=== PATIENT | female | born 1935 | race Caucasian/White ===

== ENCOUNTER → 2016-05-25 | Outpatient (CLI) | payer OTHER | END | disposition home or self-care (01) | LOC: CFH 12:02 | PROVIDERS: ATTEND Obstetrics & Gynecology | DX: R92.2 Inconclusive mammogram (principal) | CPT/HCPCS: 76641; G0206 ==

== ENCOUNTER 2020-11-13 11:55 | Inpatient (IN) | payer MEDICARE ==
[~2020-11-13] VITALS: Ht 167.6 cm; Wt 68.8 kg
[~2020-11-13 11:55] MED LIST: AMLO-150 PO; AMLO-211 PO; ATEN25TA PO; CEFD300C37 PO; ESTR2TAB PO; LOSA1TAB25 PO; OMEP-110 PO; SIMV20TA19 PO; TAMS-11 PO; TRAM100T33 PO
--- NOTE | 2020-11-13 13:23 | NUR ---
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
[2020-11-13] MEDS ORDERED: ONDANSETRON 2MG/ML, 2ML ONE (14:23)
[2020-11-13] MEDS ORDERED: HYDROmorphone 2 MG/ML, 1ML ONE ×2 (14:23→17:35)
[2020-11-13] MEDS ORDERED: HYDROmorphone 1 MG/ML, 1ML INJ IV ONE (14:30)
[2020-11-13] MEDS ORDERED: SODIUM CHLORIDE FLUSH 10ML SYR IVF ONE (14:30)
[2020-11-13] MEDS ORDERED: SODIUM CHLORIDE 0.9% 1,000ML IVBOLUS ONE (14:30)
[2020-11-13] MEDS ORDERED: ONDANSETRON 2MG/ML, 2ML IVPush ONE (14:30)
[2020-11-13 14:34] LABS: BASOPHILS % (AUTO) 1 % (0-1); EOSINOPHILS % (AUTO) 0 % (1-7); LYMPHOCYTES % (AUTO) 10 % (22-44); MEAN CORPUSCULAR HEMOGLOBIN 30.7 pg (27.0-34.8); MEAN PLATELET VOLUME 7.3 fL (7.4-10.4); MONOCYTES % (AUTO) 4 % (2-9); NEUTROPHILS % (AUTO) 86 % (42-75); PLATELET COUNT 224 x10^3/uL (130-400); RED BLOOD COUNT 4.86 x10^6/uL (3.82-5.3); RED CELL DISTRIBUTION WIDTH 14.3 % (9.6-15.2)
[2020-11-13 14:48] LABS: ALANINE AMINOTRANSFERASE 14 U/L (12-78); ANION GAP 8 mmol/L (5-15); CALCIUM 9.2 mg/dL (8.5-10.1); CHLORIDE 102 mmol/L (98-107)
[2020-11-13 14:51] LABS: ALKALINE PHOSPHATASE 57 U/L (45-117); BILIRUBIN,TOTAL 0.6 mg/dL (0.2-1.0); CREATININE 0.93 mg/dL (0.55-1.02); TOTAL PROTEIN 6.8 g/dL (6.4-8.2)
[2020-11-13] MEDS ORDERED: OMNIPAQUE 350 MG/ML, 100ML BOTTLE ONE (15:21)
[2020-11-13] MEDS ORDERED: LIDOCAINE 2% VISCOUS 15 ML UDC ONE (16:46)
--- NOTE | 2020-11-13 16:51 | NUR ---
TP: [employer]. ATTEMPT TO CALL [facility]. NO ANSWER LEFT MSG
--- NOTE | 2020-11-13 17:14 | NUR ---
NGT placed down Left nares, auscultated, aspirated pt able to speak. Draining yellow/green stomach contents to low int suction. approx 300ml. Pt tolerated well, attempted right nares first pt has deviated septum unable to pass caused slight bleeding to nose. Waiting for admission.
--- NOTE | 2020-11-13 17:41 | NUR ---
Pt c/o increase pain to abd and throat, wanting more pain medications. Verbal ok Dr nelson for 1mg dilauidid IV. Pt tolerated well. Waiting for bed.
[2020-11-13] MEDS: HYDROmorphone 2 MG/ML, 1ML IVPush PRN ×2 (17:45→21:23)
--- NOTE | 2020-11-13 17:45 | NUR ---
7/10 pain, VSS. Reports relief with dilaudid.
[2020-11-13] MEDS ORDERED: OXYcodone IR 5MG TABLET PO PRN (18:00)
[2020-11-13] MEDS ORDERED: ACETAMINOPHEN 325 MG TABLET PO PRN (18:00)
[2020-11-13] MEDS ORDERED: ONDANSETRON ODT 4 MG PO PRN (18:00)
[2020-11-13] MEDS ORDERED: PROMETHAZINE 25 MG/ML, 1ML IM PRN (18:00)
[2020-11-13] MEDS ORDERED: hydrALAzine 20 MG/ML, 1ML IVPush PRN (18:00)
--- NOTE | 2020-11-13 18:10 | NUR ---
Reports adequate pain control, placed on 2 L NC o2 for decrease o2 s/p dilaudid 2nd admin. Pt VSS.
[2020-11-13 19:07] VITALS: BP 146/68
[2020-11-13 20:06] VITALS: BP 150/76
[2020-11-13] MEDS: D5%-0.9% NACL+KCL 20MEQ 1,000 ML IV SCH (23:00)
[2020-11-14 01:03] VITALS: BP 164/80
[2020-11-14] MEDS: ONDANSETRON 2MG/ML, 2ML IVPush PRN ×3 (03:24→16:35)
[2020-11-14 05:42] LABS: BASOPHILS % (AUTO) 0 % (0-1); EOSINOPHILS % (AUTO) 1 % (1-7); LYMPHOCYTES % (AUTO) 9 % (22-44); MEAN CORPUSCULAR HEMOGLOBIN 30.2 pg (27.0-34.8); MEAN CORPUSCULAR HGB CONC 33.2 g/dL (32.4-35.8); MEAN PLATELET VOLUME 7.7 fL (7.4-10.4); MONOCYTES % (AUTO) 7 % (2-9); NEUTROPHILS % (AUTO) 84 % (42-75); PLATELET COUNT 200 x10^3/uL (130-400); RED BLOOD COUNT 4.64 x10^6/uL (3.82-5.3); RED CELL DISTRIBUTION WIDTH 14.2 % (9.6-15.2)
[2020-11-14 05:47] LABS: CHLORIDE 107 mmol/L (98-107)
[2020-11-14 06:03] LABS: ALANINE AMINOTRANSFERASE 11 U/L (12-78); ALBUMIN 2.8 g/dL (3.4-5.0); ALKALINE PHOSPHATASE 50 U/L (45-117); ANION GAP 8 mmol/L (5-15); BILIRUBIN,TOTAL 0.5 mg/dL (0.2-1.0); CALCIUM 8.6 mg/dL (8.5-10.1); CHOL/HDL RATIO 1.9; CHOLESTEROL, TOTAL 130 mg/dL (140-239); CREATININE 0.88 mg/dL (0.55-1.02); HDL CHOL % 52 % (28-40); HDL CHOLESTEROL (DIRECT) 68 mg/dL (40-60); LDL CHOLESTEROL,CALCULATED 47 mg/dL (54-169); LDL/HDL RATIO 0.7 (0.5-3.0); TOTAL PROTEIN 6.2 g/dL (6.4-8.2); TRIGLYCERIDES 74 mg/dL (50-200); VLDL CHOLESTEROL 15 mg/dL (0-25)
[2020-11-14] MEDS: D5%-0.9% NACL+KCL 20MEQ 1,000 ML IV SCH (06:30)
[2020-11-14 07:02] VITALS: BP 157/76
[2020-11-14] MEDS ORDERED: POTASSIUM PHOSPHATE 44 MEQ in SODIUM CHLORIDE 0.9% 500 ML IV ONE (08:30)
[2020-11-14] MEDS ORDERED: MAGNESIUM SULFATE PMX 4GM/100M 100 ML IVPB ONE (08:30)
[2020-11-14] MEDS: HYDROmorphone 2 MG/ML, 1ML IVPush PRN (16:36)
[2020-11-14 20:22] VITALS: BP 145/87
[2020-11-15 01:20] VITALS: BP 137/84
[2020-11-15 07:24] VITALS: BP 128/78
[2020-11-15] MEDS: HYDROmorphone 2 MG/ML, 1ML IVPush PRN ×2 (08:01→15:54)
[2020-11-15] MEDS: ONDANSETRON 2MG/ML, 2ML IVPush PRN ×2 (08:01→15:54)
[2020-11-15 09:41] LABS: ANION GAP 8 mmol/L (5-15); CALCIUM 9.2 mg/dL (8.5-10.1); CHLORIDE 103 mmol/L (98-107); CREATININE 1.03 mg/dL (0.55-1.02)
[2020-11-15 12:24] VITALS: BP 129/77
[2020-11-15 19:43] VITALS: BP 134/84
[2020-11-16 03:20] VITALS: BP 123/76
[2020-11-16] MEDS ORDERED: LACTATED RINGERS 1,000 ML IV SCH (06:00)
[2020-11-16 06:10] LABS: BASOPHILS % (AUTO) 0 % (0-1); EOSINOPHILS % (AUTO) 1 % (1-7); LYMPHOCYTES % (AUTO) 17 % (22-44); MEAN CORPUSCULAR HEMOGLOBIN 31.3 pg (27.0-34.8); MEAN CORPUSCULAR HGB CONC 34.1 g/dL (32.4-35.8); MEAN PLATELET VOLUME 8.2 fL (7.4-10.4); MONOCYTES % (AUTO) 13 % (2-9); NEUTROPHILS % (AUTO) 70 % (42-75); PLATELET COUNT 208 x10^3/uL (130-400); RED BLOOD COUNT 4.64 x10^6/uL (3.82-5.3); RED CELL DISTRIBUTION WIDTH 14.6 % (9.6-15.2)
[2020-11-16 06:18] LABS: CHLORIDE 106 mmol/L (98-107)
[2020-11-16 06:25] LABS: ANION GAP 8 mmol/L (5-15); CREATININE 1.13 mg/dL (0.55-1.02)
[2020-11-16] MEDS ORDERED: POTASSIUM PHOSPHATE 44 MEQ in SODIUM CHLORIDE 0.9% 500 ML IV ONE (08:30)
[2020-11-16 09:16] VITALS: BP 132/65
[2020-11-16] MEDS: D5%-0.9% NACL+KCL 20MEQ 1,000 ML IV SCH ×2 (10:19→23:12)
[2020-11-16 13:46] VITALS: BP 135/75
[2020-11-16] MEDS ORDERED: HEPARIN 5,000 UNITS/ML, 1ML ONE (15:01)
[2020-11-16] MEDS: HEPARIN 5,000 UNITS/ML, 1ML SQ SCH ×2 (15:14→23:13)
[2020-11-16 19:29] VITALS: BP 119/73
[2020-11-17 01:22] VITALS: BP 123/76
[2020-11-17] MEDS: HEPARIN 5,000 UNITS/ML, 1ML SQ SCH ×3 (06:23→21:21)
[2020-11-17 08:04] VITALS: BP 151/79
[2020-11-17 09:17] LABS: BASOPHILS % (AUTO) 0 % (0-1); EOSINOPHILS % (AUTO) 1 % (1-7); LYMPHOCYTES % (AUTO) 22 % (22-44); MEAN CORPUSCULAR HEMOGLOBIN 30.8 pg (27.0-34.8); MEAN CORPUSCULAR HGB CONC 33.8 g/dL (32.4-35.8); MEAN PLATELET VOLUME 7.9 fL (7.4-10.4); MONOCYTES % (AUTO) 13 % (2-9); NEUTROPHILS % (AUTO) 64 % (42-75); PLATELET COUNT 206 x10^3/uL (130-400); RED CELL DISTRIBUTION WIDTH 14.5 % (9.6-15.2)
[2020-11-17 09:24] LABS: CALCIUM 8.7 mg/dL (8.5-10.1)
[2020-11-17 09:25] LABS: CREATININE 0.88 mg/dL (0.55-1.02)
[2020-11-17 09:40] LABS: ANION GAP 3 mmol/L (5-15); CHLORIDE 113 mmol/L (98-107)
[2020-11-17 12:31] VITALS: BP 142/84
[2020-11-17] MEDS: D5%-0.9% NACL+KCL 20MEQ 1,000 ML IV SCH (13:14)
[2020-11-17 18:41] VITALS: BP 144/87
[2020-11-17] MEDS: ONDANSETRON 2MG/ML, 2ML IVPush PRN (19:46)
[2020-11-17] MEDS: D5%-0.45% NACL 1,000 ML IV SCH (23:30)
[2020-11-18 00:33] VITALS: BP 150/81
[2020-11-18] MEDS: HEPARIN 5,000 UNITS/ML, 1ML SQ SCH ×3 (05:27→23:08)
[2020-11-18 05:40] LABS: BASOPHILS % (AUTO) 0 % (0-1); EOSINOPHILS % (AUTO) 1 % (1-7); LYMPHOCYTES % (AUTO) 21 % (22-44); MEAN CORPUSCULAR HEMOGLOBIN 30.9 pg (27.0-34.8); MEAN CORPUSCULAR HGB CONC 33.7 g/dL (32.4-35.8); MEAN PLATELET VOLUME 8.2 fL (7.4-10.4); MONOCYTES % (AUTO) 11 % (2-9); NEUTROPHILS % (AUTO) 68 % (42-75); PLATELET COUNT 218 x10^3/uL (130-400); RED BLOOD COUNT 4.52 x10^6/uL (3.82-5.3); RED CELL DISTRIBUTION WIDTH 14.6 % (9.6-15.2)
[2020-11-18 05:47] LABS: ANION GAP 8 mmol/L (5-15); CALCIUM 8.4 mg/dL (8.5-10.1); CHLORIDE 109 mmol/L (98-107); CREATININE 1.04 mg/dL (0.55-1.02)
[2020-11-18] MEDS ORDERED: POTASSIUM CHLORIDE 40 MEQ in SODIUM CHLORIDE 0.9% 500 ML IV ONE (07:30)
[2020-11-18 08:00] VITALS: BP 149/83
[2020-11-18] MEDS ORDERED: MAGNESIUM SULFATE PMX 4GM/100M 100 ML IVPB ONE (08:00)
[2020-11-18] MEDS ORDERED: POTASSIUM PHOSPHATE 44 MEQ in SODIUM CHLORIDE 0.9% 500 ML IV ONE ×2 (12:00→21:30)
[2020-11-18] MEDS ORDERED: CHLORHEXIDINE 15 ML UDC PO ONE (12:30)
[2020-11-18] MEDS: D5%-0.45% NACL 1,000 ML IV SCH (12:50)
[2020-11-18] MEDS ORDERED: EPINEPHRINE 1 MG/ML, 1ML ONE (13:13)
[2020-11-18] MEDS ORDERED: BUPIVACAINE/PF 0.5% ONE (13:13)
[2020-11-18] MEDS ORDERED: FENTANYL PF 250 MCG/5ML ONE (13:27)
[2020-11-18] MEDS ORDERED: HALOPERIDOL 5 MG/ML IV PRN (13:30)
[2020-11-18] MEDS ORDERED: HYDROmorphone 1 MG/ML, 1ML INJ IVPush PRN (13:30)
[2020-11-18] MEDS ORDERED: MEPERIDINE/PF 25MG/0.5ML IVPush PRN (13:30)
[2020-11-18] MEDS ORDERED: hydrALAzine 20 MG/ML, 1ML IV PRN (13:30)
[2020-11-18] MEDS ORDERED: FENTANYL PF 100 MCG/2ML IV PRN (13:30)
[2020-11-18] MEDS ORDERED: LABETALOL 5MG/ML, 20ML IV PRN (13:30)
[2020-11-18] MEDS ORDERED: DIPHENHYDRAMINE 50 MG/ML, 1ML IVPush PRN (13:30)
[2020-11-18] MEDS ORDERED: CEFOTETAN 2 GM ONE (14:33)
[2020-11-18] MEDS ORDERED: PHENYLEPHRINE 10 MG/ML ONE (14:35)
[2020-11-18] MEDS ORDERED: CEFAZOLIN 1,000 MG ONE (15:34)
[2020-11-18] MEDS ORDERED: ONDANSETRON 2MG/ML, 2ML ONE (15:34)
[2020-11-18] MEDS ORDERED: ROCURONIUM 10MG/ML,5ML ONE (15:34)
[2020-11-18] MEDS ORDERED: DEXAMETHASONE 4 MG/ML, 1ML ONE (15:34)
[2020-11-18] MEDS ORDERED: SUCCINYLCHOLINE 20 MG/ML, 10ML ONE (15:34)
[2020-11-18] MEDS ORDERED: PROPOFOL 10 MG/ML, 20ML ONE (15:34)
[2020-11-18] MEDS ORDERED: NEOSTIGMINE 1 MG/ML, 10ML ONE (15:34)
[2020-11-18] MEDS ORDERED: GLYCOPYRROLATE 0.2MG/1ML, 5ML ONE (15:34)
[2020-11-18] MEDS ORDERED: hydrALAzine 20 MG/ML, 1ML ONE (16:22)
[2020-11-18] MEDS: HYDROmorphone 2 MG/ML, 1ML IVPush PRN (19:44)
[2020-11-18 20:04] VITALS: BP 154/75
[2020-11-18 23:57] VITALS: BP 146/80
[2020-11-19 03:03] VITALS: BP 156/78
[2020-11-19] MEDS: HYDROmorphone 2 MG/ML, 1ML IVPush PRN (03:57)
[2020-11-19 05:32] LABS: BASOPHILS % (AUTO) 0 % (0-1); EOSINOPHILS % (AUTO) 0 % (1-7); LYMPHOCYTES % (AUTO) 19 % (22-44); MEAN CORPUSCULAR HEMOGLOBIN 30.7 pg (27.0-34.8); MEAN CORPUSCULAR HGB CONC 33.5 g/dL (32.4-35.8); MEAN PLATELET VOLUME 7.5 fL (7.4-10.4); MONOCYTES % (AUTO) 11 % (2-9); NEUTROPHILS % (AUTO) 70 % (42-75); PLATELET COUNT 232 x10^3/uL (130-400); RED BLOOD COUNT 4.13 x10^6/uL (3.82-5.3); RED CELL DISTRIBUTION WIDTH 14.9 % (9.6-15.2)
[2020-11-19] MEDS: D5%-0.45% NACL 1,000 ML IV SCH ×3 (06:02→18:40)
[2020-11-19] MEDS: HEPARIN 5,000 UNITS/ML, 1ML SQ SCH ×2 (06:36→17:48)
[2020-11-19 07:49] VITALS: BP 155/80
[2020-11-19 09:17] LABS: ANION GAP 6 mmol/L (5-15); CALCIUM 7.9 mg/dL (8.5-10.1); CHLORIDE 111 mmol/L (98-107); CREATININE 0.98 mg/dL (0.55-1.02)
[2020-11-19 13:12] VITALS: BP 171/81
[2020-11-19 13:57] VITALS: BP 167/83
[2020-11-19 19:56] VITALS: BP 161/94
[2020-11-19] MEDS ORDERED: PVN PER PHARMACY MC PRN (20:00)
[2020-11-20 02:00] VITALS: BP 160/90
[2020-11-20] MEDS: HEPARIN 5,000 UNITS/ML, 1ML SQ SCH ×3 (02:04→17:38)
[2020-11-20 05:36] LABS: BASOPHILS % (AUTO) 0 % (0-1); EOSINOPHILS % (AUTO) 2 % (1-7); LYMPHOCYTES % (AUTO) 27 % (22-44); MEAN CORPUSCULAR HEMOGLOBIN 30.5 pg (27.0-34.8); MEAN CORPUSCULAR HGB CONC 33.4 g/dL (32.4-35.8); MEAN PLATELET VOLUME 7.5 fL (7.4-10.4); MONOCYTES % (AUTO) 9 % (2-9); NEUTROPHILS % (AUTO) 62 % (42-75); PLATELET COUNT 246 x10^3/uL (130-400); RED BLOOD COUNT 4.07 x10^6/uL (3.82-5.3); RED CELL DISTRIBUTION WIDTH 14.7 % (9.6-15.2)
[2020-11-20 05:47] LABS: ALBUMIN 2.4 g/dL (3.4-5.0); ANION GAP 4 mmol/L (5-15); CALCIUM 7.8 mg/dL (8.5-10.1); CHLORIDE 107 mmol/L (98-107)
[2020-11-20 05:52] LABS: ALANINE AMINOTRANSFERASE 14 U/L (12-78); ALKALINE PHOSPHATASE 59 U/L (45-117); BILIRUBIN,TOTAL 0.3 mg/dL (0.2-1.0); CREATININE 0.72 mg/dL (0.55-1.02); PREALBUMIN 12.2 mg/dL (20.0-40.0); TOTAL PROTEIN 5.8 g/dL (6.4-8.2); TRIGLYCERIDES 126 mg/dL (50-200)
[2020-11-20] MEDS ORDERED: POTASSIUM CHLORIDE 40 MEQ in SODIUM CHLORIDE 0.9% 500 ML IV ONE (07:30)
[2020-11-20] MEDS: PANTOPRAZOLE 40 MG IV IVPush SCH (09:09)
[2020-11-20] MEDS ORDERED: D5%-0.45% NACL 1,000 ML IV SCH (09:30)
[2020-11-20 09:31] VITALS: BP 149/84
[2020-11-20] MEDS ORDERED: BISACODYL 10 MG SUPP PR PRN (12:30)
[2020-11-20 12:32] VITALS: BP 139/81
[2020-11-20] MEDS ORDERED: DEXTROSE 10% 500 ML IV PRN (17:00)
[2020-11-20] MEDS ORDERED: DEXTROSE 50%, 50ML SYRINGE IVPush PRN (17:00)
[2020-11-20] MEDS ORDERED: FILTER, DISP 1.2 MICRON FOR TPN/PVN IV PRN (17:00)
[2020-11-20] MEDS: AMINO ACID 10% 750 ML, DEXTROSE 70% 350 ML, FAT EMUL/SMOF TPN 200 ML, STERILE WATER 1,0... IV SCH (17:38)
[2020-11-20] MEDS: INSULIN REGULAR LOW DOSE Q6H X 48HRS SQ-INSULIN SCH (19:13)
[2020-11-20 20:36] VITALS: BP 165/81
[2020-11-21] MEDS: HEPARIN 5,000 UNITS/ML, 1ML SQ SCH ×2 (02:05→09:46)
[2020-11-21 02:09] VITALS: BP 154/76
[2020-11-21] MEDS: INSULIN REGULAR LOW DOSE Q6H X 48HRS SQ-INSULIN SCH ×3 (03:00→13:35)
[2020-11-21 05:37] LABS: BASOPHILS % (AUTO) 0 % (0-1); EOSINOPHILS % (AUTO) 4 % (1-7); LYMPHOCYTES % (AUTO) 33 % (22-44); MEAN CORPUSCULAR HEMOGLOBIN 31.2 pg (27.0-34.8); MEAN CORPUSCULAR HGB CONC 34.4 g/dL (32.4-35.8); MEAN PLATELET VOLUME 7.6 fL (7.4-10.4); MONOCYTES % (AUTO) 11 % (2-9); NEUTROPHILS % (AUTO) 52 % (42-75); PLATELET COUNT 233 x10^3/uL (130-400); RED BLOOD COUNT 3.76 x10^6/uL (3.82-5.3); RED CELL DISTRIBUTION WIDTH 14.6 % (9.6-15.2)
[2020-11-21 05:46] LABS: ANION GAP 3 mmol/L (5-15); CALCIUM 7.9 mg/dL (8.5-10.1); CHLORIDE 107 mmol/L (98-107)
[2020-11-21 05:47] LABS: CREATININE 0.81 mg/dL (0.55-1.02)
[2020-11-21 07:55] VITALS: BP 167/81
[2020-11-21] MEDS: PANTOPRAZOLE 40 MG IV IVPush SCH (08:28)
[2020-11-21] MEDS ORDERED: DOCU-131 PO (10:20)
[2020-11-21 12:49] VITALS: BP 150/82
[2020-11-21] MEDS: AMINO ACID 10% 750 ML, DEXTROSE 70% 350 ML, FAT EMUL/SMOF TPN 200 ML, STERILE WATER 1,0... IV SCH (13:36)
[2020-11-23] MEDS ORDERED: INSULIN REGULAR LOW DOSE QDAY SQ-INSULIN SCH (21:00)
== END 2020-11-21 15:17 | disposition home or self-care (01) | DRG 335 ==
LOC: ED 14:55 → EDIP 16:20 → 4NE 18:29
PROVIDERS: ADMIT Family Medicine; ATTEND Family Medicine
PROC: 0DN84ZZ Release Small Intestine, Percutaneous Endoscopic Approach (ICD-10-PCS; principal; 2020-11-18 13:30)
DX: K56.52 Intestinal adhesions [bands] with complete obstruction (principal); E43 Unspecified severe protein-calorie malnutrition; K44.0 Diaphragmatic hernia with obstruction, without gangrene; E78.5 Hyperlipidemia, unspecified; E87.6 Hypokalemia; I10 Essential (primary) hypertension; K21.9 Gastro-esophageal reflux disease without esophagitis; Z20.822 Contact with and (suspected) exposure to COVID-19; K31.89 Other diseases of stomach and duodenum; Z90.49 Acquired absence of other specified parts of digestive tract; Z68.24 Body mass index [BMI] 24.0-24.9, adult; Z83.3 Family history of diabetes mellitus; Z80.42 Family history of malignant neoplasm of prostate; Z87.891 Personal history of nicotine dependence; Z90.710 Acquired absence of both cervix and uterus; Z88.5 Allergy status to narcotic agent
CPT/HCPCS: 36415; 74018; 74177; 74250; 80048; 80053; 80061; 83036; 83605; 83735; 84100; 84134; 84443; 84478; 85025; 87635; 93005; 96361; 96374; 96375; 99285; G0378; J0171; J0690; J1100; J1170; J1644; J2405; J2550; J2704; J2710; J3010; J3480; Q9967; C9113; J0330; J0360; J2370; J3475; J7030; J7040; J7120